=== PATIENT | female | born 1980 | race Caucasian/White ===

== ENCOUNTER 2021-12-06 15:46 | Outpatient (CLI) | payer BC | END 2021-12-06 15:47 | disposition home or self-care (01) | LOC: CSHMAMMO 15:46 | PROVIDERS: ATTEND Internal Medicine | DX: Z12.31 Encounter for screening mammogram for malignant neoplasm of breast (principal) | CPT/HCPCS: 77063; 77067 ==

== ENCOUNTER 2024-04-17 12:53 | Outpatient (CLI) | payer BC | END 2024-04-17 12:54 | disposition home or self-care (01) | LOC: CSHRAD 12:53 | PROVIDERS: ATTEND Internal Medicine | DX: M79.671 Pain in right foot (principal) ==

== ENCOUNTER 2024-04-29 12:24 | Outpatient (CLI) | payer BC | END 2024-04-29 12:25 | disposition home or self-care (01) | LOC: CSHMAMMO 12:24 | PROVIDERS: ATTEND Internal Medicine | DX: Z12.31 Encounter for screening mammogram for malignant neoplasm of breast (principal) | CPT/HCPCS: 77063; 77067 ==